=== PATIENT | male | born 1965 | race Caucasian/White ===

== ENCOUNTER 2019-09-20 09:02 | Emergency (ER) | payer MEDICARE ==
[2019-09-20] MEDS ORDERED: AMOXICILLIN500 MG PO (09:29)
[2019-09-20] MEDS ORDERED: MOTRIN800 MG PO (09:29)
[2019-09-20] MEDS ORDERED: TRAMADOL HCL50 MG PO (09:29)
[2019-09-20 09:35] VITALS: BP 165/72
== END 2019-09-20 09:41 | disposition home or self-care (01) ==
LOC: ED 09:02
DX: J01.00 Acute maxillary sinusitis, unspecified (principal); K04.7 Periapical abscess without sinus; I10 Essential (primary) hypertension; F17.210 Nicotine dependence, cigarettes, uncomplicated

== ENCOUNTER 2021-11-25 08:04 | Day surgery (SDC) | payer MEDICARE ==
[~2021-11-25] VITALS: Ht 175.3 cm; Wt 77.1 kg
[~2021-11-25 08:04] MED LIST: AMOXICILLIN500 MG PO; MOTRIN800 MG PO; NORVASC5 M1 PO; TRAMADOL HCL50 MG PO
[2021-11-25 11:18] VITALS: BP 133/59
== END 2021-11-25 11:31 | disposition home or self-care (01) ==
LOC: ENDO 08:04
PROVIDERS: ATTEND Surgery
PROC: 0DJD8ZZ Inspection of Lower Intestinal Tract, Via Natural or Artificial Opening Endoscopic (ICD-10-PCS; principal; 2021-11-25)
DX: Z12.11 Encounter for screening for malignant neoplasm of colon (principal); Q43.9 Congenital malformation of intestine, unspecified; K57.30 Diverticulosis of large intestine without perforation or abscess without bleeding; I10 Essential (primary) hypertension; F17.200 Nicotine dependence, unspecified, uncomplicated; Z85.820 Personal history of malignant melanoma of skin